=== PATIENT | female | born 1930 | race Caucasian/White ===

== ENCOUNTER → 2020-01-27 | Outpatient (CLI) | payer MEDICARE, OTHER ==
[~2020-01-27] MED LIST: 0.910DIS17 IV; ACET-2065 PO; ACET650S12 PR; AMIO200T42 PO; AMIO400T5 PO; AREDS PO; ASPI-496 PO; ASPI81TA45 PO; BIOT5TAB PO; BISA10SU4 PR; BISA5TAB5 PO; CIPR500T87 PO; CLOP75TA PO; DEXT-230 PO; DOCU100C33 PO; ENOX40SY4 SQ; ESOM40CA PO; ESTR0.3T PO; FLAX1000 PO; FLAX100013 PO; FURO-92 PO; FURO-93 PO; GLUC1VIA5 IV; HYDR-3246 PO; INSU100C5 SQ-INSULIN; LEVO100T PO; MULT-642 PO; OMEG1CAP24 PO; OMEG300C PO; ONDA4TAB7 PO; OXYC15TA75 PO; POTA20TA14 PO; POTA20TA89 PO; PROC5TAB40 PO; ZOLE5INF IV; ZOLP10TA PO; [UNRECOGNIZED DRUG - OTHER] PO; sodium chloride IV
== END | disposition home or self-care (01) ==
LOC: CFH 13:41
PROVIDERS: ATTEND Internal Medicine Cardiovascular Disease
DX: I05.2 Rheumatic mitral stenosis with insufficiency (principal); Z95.2 Presence of prosthetic heart valve
CPT/HCPCS: 93306

== ENCOUNTER → 2020-10-05 | Outpatient (CLI) | payer MEDICARE, OTHER ==
[~2020-10-05] MED LIST changes: -DEXT-230 PO; +DEXT4TAB31 PO; -HYDR-3246 PO; +HYDR-3248 PO
== END | disposition home or self-care (01) ==
LOC: CFH 10:47
PROVIDERS: ATTEND Internal Medicine Cardiovascular Disease
DX: I08.8 Other rheumatic multiple valve diseases (principal); I25.10 Atherosclerotic heart disease of native coronary artery without angina pectoris; Z95.3 Presence of xenogenic heart valve
CPT/HCPCS: 93306

== ENCOUNTER 2021-03-17 03:38 | Inpatient (IN) | payer MEDICARE, OTHER ==
[~2021-03-17] VITALS: Ht 167.6 cm; Wt 58.8 kg
[2021-03-17] MEDS ORDERED: SODIUM CHLORIDE FLUSH 10ML SYR IVF ONE (04:00)
[2021-03-17] MEDS ORDERED: SODIUM CHLORIDE 0.9% 1,000ML IVBOLUS ONE ×2 (04:00→06:30)
--- NOTE | 2021-03-17 04:47 | NUR ---
BIB BY LORI FOR REPORTED GI BLEED. HUSBANDS STATES SHE HAD DARK RED BLOOD AND SOME BRIGHT RED CLOTS IN THE TOILET. DENEIS ANY PREVIOUS HISTORY OF GI BLEEDS. PT HAS NOTICABLE SWELLING AND WEEPING TO BILATERAL LOWER EXTREMITIES. PT APPEARS PALE IN [place]. REPORTS PT TOOK AN AMBIEN 4 HOURS PRIOR TO ARRIVAL AND "IT WILL TAKE HER SEVERAL HOURS TO COME OUT OF IT" PT CONNECTED TO VITAL SIGN MACHINE AND PROVIDERS AT BEDSIDE UPON ASSESSMENT.
--- NOTE | 2021-03-17 04:49 | NUR ---
URINE COLLECTED AND WALKED TO LAB.
[2021-03-17 05:04] LABS: MICROSCOPIC INDICATED
--- NOTE | 2021-03-17 05:21 | NUR ---
LAB AT BEDSIDE.
--- NOTE | 2021-03-17 05:21 | NUR ---
PRIOR NOTES WRITTEN BY OZZIE ALEGRIA
[2021-03-17 05:48] LABS: MEAN CORPUSCULAR HEMOGLOBIN 26.8 pg (27.0-34.8); MEAN PLATELET VOLUME 7.5 fL (7.4-10.4); PLATELET COUNT 265 x10^3/uL (130-400); RED BLOOD COUNT 4.15 x10^6/uL (3.82-5.3); RED CELL DISTRIBUTION WIDTH 23.7 % (9.6-15.2)
[2021-03-17 05:57] LABS: INTERNATIONAL NORMALIZED RATIO 1.18 (0.93-1.1); PROTHROMBIN TIME 12.5 Seconds (9.6-11.5)
[2021-03-17 05:59] LABS: ALANINE AMINOTRANSFERASE 67 U/L (12-78); ALBUMIN 2.3 g/dL (3.4-5.0); ANION GAP 15 mmol/L (5-15); CALCIUM 7.9 mg/dL (8.5-10.1); CHLORIDE 101 mmol/L (98-107)
[2021-03-17 06:05] LABS: ALKALINE PHOSPHATASE 230 U/L (45-117); BILIRUBIN,TOTAL 1.6 mg/dL (0.2-1.0); CREATININE 2.13 mg/dL (0.55-1.02); TOTAL PROTEIN 5.2 g/dL (6.4-8.2); TROPONIN I 0.041 ng/mL (0.000-0.045)
[2021-03-17 06:20] LABS: ANISOCYTOSIS 1+; BAND#(MANUAL) 0.11 x10^3/uL; BANDS%(MANUAL) 1 % (0-7); HYPOCHROMIA 1+; LYMPH#(MANUAL) 0.84 x10^3/uL (1-3.4); LYMPHS% (MANUAL) 8 % (22-44); METAMYELOCYTES# (MANUAL) 0.11 x10^3/uL (0-0); METAMYELOCYTES% (MANUAL) 1 % (0-1); MICROCYTOSIS 1+; MONOS#(MANUAL) 0.32 x10^3/uL (0.3-2.7); MONOS% (MANUAL) 3 % (2-9); OVALOCYTES 1+; POLYCHROMASIA 1+; SEG#(MANUAL) 9.14 x10^3/uL (1.8-6.8); SEGS% (MANUAL) 87 % (42-75)
[2021-03-17 06:21] LABS: <PLATELET ESTIMATE> ADEQUATE; <PLT MORPHOLOGY> NORMAL PLT MORPH; TARGET CELLS 1+; TEAR DROPS 1+
[2021-03-17] MEDS ORDERED: CEFTRIAXONE 1,000 MG in DEXTROSE 5% 50 ML IVPB ONE (06:30)
--- NOTE | 2021-03-17 06:38 | NUR ---
PT TO CT
--- NOTE | 2021-03-17 06:56 | NUR ---
CARE TRANSFERED. REPORT GIVEN TO OZZIE BARNEY.
[2021-03-17] MEDS ORDERED: VANCOMYCIN PER PHARMACY MC ONE (07:00)
[2021-03-17] MEDS ORDERED: VANCOMYCIN 1,400 MG in SODIUM CHLORIDE 0.9% 250 ML IV ONE (07:00)
--- NOTE | 2021-03-17 07:05 | NUR ---
ASSUMING CARE OF PT AFTER BEDSIDE REPORT. YELLOW MED REQ SLIP SENT TO PHARMACY.
[2021-03-17] MEDS ORDERED: ONDANSETRON 2MG/ML, 2ML IVPush PRN ×2 (07:30→09:30)
--- NOTE | 2021-03-17 07:55 | NUR ---
PT ASLEEP WITH EVEN AND UNLABORED RESPRIATIONS. VSMarco A. HAFSA. AT BEDSIDE.
[2021-03-17] MEDS ORDERED: SODIUM CHLORIDE 0.9% 1,000 ML IV SCH (08:00)
[2021-03-17] MEDS ORDERED: LIDOCAINE 1%, 10ML ONE ×2 (08:21→12:16)
--- NOTE | 2021-03-17 08:45 | NUR ---
PT'S REFUSING THORCENTSIS AT THIS TIME UNTIL [facility] COMES TO TALK WITH HIM AND PT. US AT BEDSIDE. PT'S OLESYA AND HAFSA.
--- NOTE | 2021-03-17 09:13 | NUR ---
DR. MAHAN TO BEDSIDE. VSS. PEREYRA.
[2021-03-17] MEDS ORDERED: MELATONIN 5 MG TABLET PO PRN (09:30)
[2021-03-17] MEDS: AZITHROMYCIN 500 MG in SODIUM CHLORIDE 0.9% 250 ML IV SCH (09:30)
[2021-03-17] MEDS ORDERED: hydrALAzine 20 MG/ML, 1ML IVPush PRN (09:30)
[2021-03-17] MEDS ORDERED: PANTOPRAZOLE 40 MG IV IVPush SCH (09:30)
[2021-03-17] MEDS ORDERED: ACETAMINOPHEN 325 MG TABLET PO PRN (09:30)
[2021-03-17] MEDS ORDERED: PANTOPRAZOLE 40 MG IV ONE (09:35)
--- NOTE | 2021-03-17 09:53 | NUR ---
husbands cell [phone]
[2021-03-17 10:19] LABS: C-REACTIVE PROTEIN, QUANT 1.8 mg/dL (0.02-0.49)
[2021-03-17 10:38] LABS: FREE T4 (FREE THYROXINE) 0.86 ng/dL (0.76-1.46)
[2021-03-17 12:04] LABS: TROPONIN I 0.078 ng/mL (0.000-0.045)
--- NOTE | 2021-03-17 12:06 | NUR ---
PT ASLEEP. SPO2 IN 80'S ON [address] MORALES AWARE. PT TO GO TO [facility].
--- NOTE | 2021-03-17 13:02 | NUR ---
pt s/p throcentesis. no incident during procedure. 1L pulled off pt per IR RN. pt asleep in bed with even and unlabored respriations vss.
--- NOTE | 2021-03-17 14:15 | NUR ---
pt asleep with even and unlabored respirations. robert. delores.
[2021-03-17] MEDS ORDERED: METRONIDAZOLE PMX 500MG/100ML 100 ML ONE (16:17)
[2021-03-17] MEDS: METRONIDAZOLE PMX 500MG/100ML 100 ML IV SCH (16:20)
--- NOTE | 2021-03-17 16:27 | NUR ---
PT CLEANED, GIVEN NEW LINEN, AND PURWICK PLACED. PT MEDICATED PER EMAR. AT BEDSIDE.
[2021-03-17] MEDS ORDERED: ALBUTEROL HFA 90 MCG/SPRAY INH PRN (17:30)
[2021-03-17 17:32] LABS: TROPONIN I 0.157 ng/mL (0.000-0.045)
--- NOTE | 2021-03-17 17:44 | NUR ---
TROP REPORTED TO KALLI.
--- NOTE | 2021-03-17 18:10 | NUR ---
PT RESTING IN BED. VSMarco A. HAFSA.
[2021-03-17 19:09] VITALS: BP 90/60
[2021-03-17] MEDS: PANTOPRAZOLE 40 MG IV IVPush SCH (20:38)
[2021-03-17 20:57] VITALS: BP 140/76
[2021-03-18 00:08] VITALS: BP 123/55
[2021-03-18] MEDS: METRONIDAZOLE PMX 500MG/100ML 100 ML IV SCH ×4 (00:29→19:36)
[2021-03-18] MEDS ORDERED: CEFTRIAXONE 2 GM in DEXTROSE 5% 50 ML IVPB SCH (06:00)
[2021-03-18] MEDS: LEVOTHYROXINE 100 MCG TABLET PO SCH (06:00)
[2021-03-18 06:02] LABS: BASOPHILS % (AUTO) 0 % (0-1); EOSINOPHILS % (AUTO) 0 % (1-7); LYMPHOCYTES % (AUTO) 4 % (22-44); MEAN CORPUSCULAR HEMOGLOBIN 26.6 pg (27.0-34.8); MEAN PLATELET VOLUME 7.7 fL (7.4-10.4); MONOCYTES % (AUTO) 5 % (2-9); NEUTROPHILS % (AUTO) 91 % (42-75); PLATELET COUNT 232 x10^3/uL (130-400); RED BLOOD COUNT 3.93 x10^6/uL (3.82-5.3); RED CELL DISTRIBUTION WIDTH 23.5 % (9.6-15.2)
[2021-03-18 06:03] LABS: ALANINE AMINOTRANSFERASE 57 U/L (12-78); ALBUMIN 2.3 g/dL (3.4-5.0); ANION GAP 14 mmol/L (5-15); CHLORIDE 109 mmol/L (98-107); CREATININE 1.76 mg/dL (0.55-1.02)
[2021-03-18 06:07] LABS: ALKALINE PHOSPHATASE 211 U/L (45-117); BILIRUBIN,TOTAL 1.6 mg/dL (0.2-1.0); TOTAL PROTEIN 5.2 g/dL (6.4-8.2)
[2021-03-18] MEDS ORDERED: SODIUM BICARBONATE 8.4% 150 MEQ in DEXTROSE 5% 1,000 ML IV SCH (07:00)
[2021-03-18] MEDS ORDERED: SODIUM BICARB 8.4%, 50ML SYRINGE IVPush ONE (07:00)
[2021-03-18] MEDS: ESTROGEN CONJUGATED 0.3 MG TABLET PO SCH (08:17)
[2021-03-18 08:56] VITALS: BP 100/56
[2021-03-18] MEDS: AZITHROMYCIN 500 MG in SODIUM CHLORIDE 0.9% 250 ML IV SCH (09:26)
[2021-03-18] MEDS: PANTOPRAZOLE 40 MG IV IVPush SCH ×2 (09:26→20:51)
[2021-03-18] MEDS ORDERED: MORPHINE SULFATE 4 MG/ML, 1ML IVPush PRN (10:00)
[2021-03-18 13:59] VITALS: BP 118/52
[2021-03-18] MEDS ORDERED: FLUCONAZOLE 200 MG/100 ML 100 ML IV SCH (14:00)
[2021-03-18 14:50] LABS: ANION GAP 11 mmol/L (5-15); CALCIUM 8.2 mg/dL (8.5-10.1); CHLORIDE 109 mmol/L (98-107); CREATININE 1.84 mg/dL (0.55-1.02)
[2021-03-18] MEDS ORDERED: CEFTRIAXONE 2 GM in SODIUM CHLORIDE 0.9% 50 ML IVPB SCH (17:00)
[2021-03-18 19:53] VITALS: BP 100/56
[2021-03-19 01:41] VITALS: BP 96/50
[2021-03-19] MEDS: METRONIDAZOLE PMX 500MG/100ML 100 ML IV SCH (02:40)
[2021-03-19] MEDS: LEVOTHYROXINE 100 MCG TABLET PO SCH (05:28)
[2021-03-19 06:09] LABS: BASOPHILS % (AUTO) 0 % (0-1); EOSINOPHILS % (AUTO) 0 % (1-7); LYMPHOCYTES % (AUTO) 6 % (22-44); MEAN CORPUSCULAR HEMOGLOBIN 26.6 pg (27.0-34.8); MEAN CORPUSCULAR HGB CONC 31.6 g/dL (32.4-35.8); MEAN PLATELET VOLUME 7.5 fL (7.4-10.4); MONOCYTES % (AUTO) 6 % (2-9); NEUTROPHILS % (AUTO) 88 % (42-75); PLATELET COUNT 193 x10^3/uL (130-400)
[2021-03-19 06:14] LABS: ALBUMIN 2.4 g/dL (3.4-5.0); ANION GAP 11 mmol/L (5-15); CALCIUM 7.5 mg/dL (8.5-10.1); CHLORIDE 104 mmol/L (98-107)
[2021-03-19 06:17] LABS: ALANINE AMINOTRANSFERASE 56 U/L (12-78); ALKALINE PHOSPHATASE 206 U/L (45-117); BILIRUBIN,TOTAL 1.1 mg/dL (0.2-1.0); CREATININE 2.11 mg/dL (0.55-1.02); TOTAL PROTEIN 5.4 g/dL (6.4-8.2)
[2021-03-19] MEDS ORDERED: SODIUM BICARBONATE 8.4% 150 MEQ in DEXTROSE 5% 1,000 ML IV SCH (07:00)
[2021-03-19] MEDS ORDERED: ALBUMIN HUMAN 25% 100 ML IV SCH (07:00)
[2021-03-19] MEDS ORDERED: FUROSEMIDE 40 MG/4 ML IV SCH (07:30)
[2021-03-19 08:10] VITALS: BP 124/62
[2021-03-19] MEDS: ESTROGEN CONJUGATED 0.3 MG TABLET PO SCH (09:03)
[2021-03-19] MEDS: PANTOPRAZOLE 40 MG IV IVPush SCH (09:03)
[2021-03-19] MEDS: AZITHROMYCIN 500 MG in SODIUM CHLORIDE 0.9% 250 ML IV SCH (10:44)
== END 2021-03-19 15:15 | DRG 871 ==
LOC: ED 04:08 → EDIP 07:20 → 5SO 18:39
PROVIDERS: ADMIT Family Medicine; ATTEND Family Medicine
PROC: 0T9B30Z Drainage of Bladder with Drainage Device, Percutaneous Approach (ICD-10-PCS; principal; 2021-03-17)
PROC: 0W993ZZ Drainage of Right Pleural Cavity, Percutaneous Approach (ICD-10-PCS; 2021-03-17)
DX: A41.9 Sepsis, unspecified organism (principal); E43 Unspecified severe protein-calorie malnutrition; J15.9 Unspecified bacterial pneumonia; I21.A1 Myocardial infarction type 2; I50.43 Acute on chronic combined systolic (congestive) and diastolic (congestive) heart failure; K85.90 Acute pancreatitis without necrosis or infection, unspecified; K83.1 Obstruction of bile duct; J96.01 Acute respiratory failure with hypoxia; E87.1 Hypo-osmolality and hyponatremia; I38 Endocarditis, valve unspecified; N17.9 Acute kidney failure, unspecified; E87.2 Acidosis; G93.40 Encephalopathy, unspecified; I82.4Z1 Acute embolism and thrombosis of unspecified deep veins of right distal lower extremity; K92.2 Gastrointestinal hemorrhage, unspecified; D18.03 Hemangioma of intra-abdominal structures; E03.9 Hypothyroidism, unspecified; H54.8 Legal blindness, as defined in USA; H35.30 Unspecified macular degeneration; H91.90 Unspecified hearing loss, unspecified ear; I11.0 Hypertensive heart disease with heart failure; I25.10 Atherosclerotic heart disease of native coronary artery without angina pectoris; I27.29 Other secondary pulmonary hypertension; I35.1 Nonrheumatic aortic (valve) insufficiency; I50.82 Biventricular heart failure; I73.9 Peripheral vascular disease, unspecified; R57.0 Cardiogenic shock; Z66 Do not resuscitate; Z20.822 Contact with and (suspected) exposure to COVID-19; R65.20 Severe sepsis without septic shock; Z51.5 Encounter for palliative care; R62.7 Adult failure to thrive; N28.1 Cyst of kidney, acquired; K82.8 Other specified diseases of gallbladder; Z95.5 Presence of coronary angioplasty implant and graft; Z95.2 Presence of prosthetic heart valve; Z90.710 Acquired absence of both cervix and uterus; Z90.49 Acquired absence of other specified parts of digestive tract; Z87.891 Personal history of nicotine dependence; Z86.74 Personal history of sudden cardiac arrest; Z85.820 Personal history of malignant melanoma of skin; Z85.038 Personal history of other malignant neoplasm of large intestine; Z88.8 Allergy status to other drugs, medicaments and biological substances; Z68.20 Body mass index [BMI] 20.0-20.9, adult; Z95.4 Presence of other heart-valve replacement
CPT/HCPCS: 32555; 36415; 36600; 71045; 74176; 76700; 80048; 80053; 81001; 82803; 82962; 83605; 83615; 83690; 83735; 83880; 84100; 84145; 84157; 84439; 84443; 84484; 85014; 85018; 85025; 85379; 85610; 86140; 86850; 86900; 87040; 87070; 87086; 87106; 87205; 88112; 88305; 89051; 93005; 93306; 93970; 96374; 99291; G0378; J0456; J0696; J1940; J3370; J7070; P9047; U0005; C9113; J1450; J2270; J7030; J7050; U0003